=== PATIENT | female | born 1980 | race Asian ===

== ENCOUNTER 2017-12-28 04:21 | Inpatient (IN) | payer SELFPAY ==
[~2017-12-28] VITALS: Ht 152.4 cm; Wt 64.0 kg
[2017-12-28] MEDS: LACTATED RINGERS 1,000 ML IV SCH ×2 (05:00→06:15)
[2017-12-28] MEDS ORDERED: METHYLERGONOVINE 0.2 MG/ML AMP IM PRN ×2 (05:10→14:00)
[2017-12-28] MEDS ORDERED: CARBOPROST 250 MCG/ML AMP IM PRN (05:10)
[2017-12-28] MEDS ORDERED: ceFAZolin 1,000 MG VIAL ONE (05:59)
[2017-12-28] MEDS ORDERED: OXYTOCIN 10 UNITS/ML VIAL ONE (06:00)
[2017-12-28 06:08] LABS: BASOPHILS % (AUTO) 0.6 % (0.0-2.0); EOSINOPHILS # (AUTO) 0.1 K/uL (0-0.4); EOSINOPHILS % (AUTO) 1.3 % (0.0-4.0); HEMATOCRIT 31.5 % (36-48); LYMPHOCYTES # (AUTO) 1.6 K/uL (2.5-16.5); LYMPHOCYTES % (AUTO) 19.8 % (20.5-51.1); MEAN CORPUSCULAR HEMOGLOBIN 26 pg (27-31); MEAN CORPUSCULAR HGB CONC 32 g/dL (33-37); MEAN CORPUSCULAR VOLUME 81.7 fL (80-94); MONOCYTES # (AUTO) 0.8 K/uL (0.8-1.0); MONOCYTES % (AUTO) 9.7 % (1.7-9.3); NEUTROPHILS # (AUTO) 5.3 K/uL (1.8-7.7); NEUTROPHILS % (AUTO) 68.6 % (42.2-75.2); PLATELET COUNT (AUTO) 148 K/uL (140-450); RED BLOOD CELL COUNT(AUTO) 3.86 MIL/uL (4.20-5.40); RED CELL DISTRIBUTION WIDTH 13.9 % (11.6-13.7); WHITE BLOOD COUNT (AUTO) 7.8 K/uL (4.8-10.8)
[2017-12-28] MEDS ORDERED: TRIAMCINOLONE 40 MG/ML 5ML VIAL ONE (06:13)
[2017-12-28] MEDS ORDERED: fentaNYL 0.05 MG/ML VIAL ONE (06:21)
[2017-12-28] MEDS ORDERED: MORPHINE PRES FREE 10 MG/10 ML AMP IV ONE (06:21)
[2017-12-28] MEDS ORDERED: ePHEDrine 50 MG/ML VIAL ONE (06:21)
[2017-12-28 06:23] LABS: ANION GAP 12.4 (8-16); CARBON DIOXIDE 25.3 mmol/L (21-32); CREATININE 0.5 mg/dL (0.6-1.3); POTASSIUM 3.7 mmol/L (3.5-5.1)
[2017-12-28 06:29] LABS: ALBUMIN 2.7 g/dL (3.4-5.0)
[2017-12-28] MEDS ORDERED: ceFAZolin 1,000 MG VIAL IVP ONE (06:42)
[2017-12-28] MEDS ORDERED: NALBUPHINE 10 MG/ML AMP IVP PRN (06:50)
[2017-12-28] MEDS ORDERED: diphenhydrAMINE 50 MG/ML VIAL IVP PRN (06:50)
[2017-12-28] MEDS ORDERED: ONDANSETRON 4 MG/2 ML VIAL IVP PRN ×2 (06:50)
[2017-12-28] MEDS ORDERED: NALOXONE 0.4 MG/ML VIAL IVP PRN ×3 (06:50)
[2017-12-28] MEDS ORDERED: KETOROLAC 60 MG/2 ML VIAL IM PRN (06:50)
[2017-12-28] MEDS ORDERED: diphenhydrAMINE 50 MG/ML VIAL ONE (07:10)
[2017-12-28] MEDS ORDERED: ONDANSETRON 4 MG/2 ML VIAL ONE (07:11)
[2017-12-28] MEDS ORDERED: OXYTOCIN 20 UNITS/LR PREMIX 1,000 ML IV ONE ×2 (07:11→23:04)
[2017-12-28 07:13] LABS: APPEARANCE,URINE SL CLOUDY (CLEAR); BILIRUBIN,URINE NEGATIVE (NEGATIVE); BLOOD, URINE NEGATIVE (NEGATIVE); COLOR,URINE YELLOW (YELLOW); LEUKOCYTE ESTERASE ,URINE NEGATIVE (NEGATIVE); NITRITE, URINE NEGATIVE (NEGATIVE); UGLUCOSE NEGATIVE (NEGATIVE)
[2017-12-28 07:52] LABS: RBC,URINE 0-5 (RARE) /HPF (0-5); WBC,URINE 0-5 (RARE) /HPF (0-5)
--- NOTE | 2017-12-28 11:20 | NUR ---
PATIENT HAS BEEN SCREENED AND CATEGORIZED LOW NUTRITION RISK. PATIENT WILL BE SEEN WITHIN 7 DAYS OF ADMISSION. 01/03/[address]
[2017-12-28] MEDS ORDERED: BUPIVACAINE 0.125%/NS PREMIX 250 ML EPI SCH (11:40)
[2017-12-28] MEDS ORDERED: MEASLES, MUMPS, AND RUBELLA 1 VIAL SQVAC PRN (14:00)
[2017-12-28] MEDS ORDERED: TRIMETHOBENZAMIDE 200 MG/2 ML SYR IM PRN (14:00)
[2017-12-28] MEDS ORDERED: OXYTOCIN 10 UNITS in LACTATED RINGERS 1,000 ML IV SCH (14:00)
[2017-12-28] MEDS ORDERED: ACETAMINOPHEN 325 MG TAB PO PRN (14:00)
[2017-12-28] MEDS ORDERED: oxyCODONE/APAP 5/325 MG 1 TAB TAB PO PRN (14:00)
[2017-12-28] MEDS: OXYTOCIN 20 UNITS in LACTATED RINGERS 1,000 ML IV SCH ×2 (15:34→23:20)
[2017-12-28] MEDS ORDERED: SENNA 8.6 MG TAB PO SCH (21:00)
[2017-12-29 06:35] LABS: HEMATOCRIT 30.2 % (36-48); HEMOGLOBIN 9.6 g/dL (12.0-16.0)
[2017-12-29] MEDS ORDERED: KETOROLAC 15 MG/ML VIAL IVP SCH ×2 (08:04→08:15)
[2017-12-29] MEDS ORDERED: KETOROLAC 30 MG/ML VIAL ONE (08:36)
[2017-12-29] MEDS: SIMETHICONE 80 MG TAB.CHEW PO PRN (14:34)
[2017-12-29] MEDS: HYDROcodone/APAP 5/325 MG 1 TAB TAB PO PRN (14:35)
[2017-12-30] MEDS: SIMETHICONE 80 MG TAB.CHEW PO PRN ×3 (00:35→17:15)
[2017-12-30] MEDS: HYDROcodone/APAP 5/325 MG 1 TAB TAB PO PRN (02:07)
[2017-12-30] MEDS: IBUPROFEN 800 MG TAB PO PRN ×3 (08:30→18:04)
[2017-12-30] MEDS ORDERED: SODIUM PHOSPHATE 118 ML ENEM RC PRN (09:00)
[2017-12-31] MEDS ORDERED: IBUP-2213 PO (09:29)
[2017-12-31] MEDS: IBUPROFEN 800 MG TAB PO PRN (09:35)
== END 2017-12-31 11:45 | disposition home or self-care (01) | DRG 766 ==
LOC: MFCC 04:21
PROVIDERS: ADMIT Obstetrics & Gynecology; ATTEND Obstetrics & Gynecology
PROC: 10D00Z1 Extraction of Products of Conception, Low, Open Approach (ICD-10-PCS; principal; 2017-12-28 06:00)
PROC: 3E0234Z Introduction of Serum, Toxoid and Vaccine into Muscle, Percutaneous Approach (ICD-10-PCS; 2017-12-30)
PROC: 3E0134Z Introduction of Serum, Toxoid and Vaccine into Subcutaneous Tissue, Percutaneous Approach (ICD-10-PCS; 2017-12-30)
DX: O34.211 Maternal care for low transverse scar from previous cesarean delivery (principal); D64.9 Anemia, unspecified; O99.02 Anemia complicating childbirth; O32.8XX0 Maternal care for other malpresentation of fetus, not applicable or unspecified; Z37.0 Single live birth; Z3A.39 39 weeks gestation of pregnancy; Z23 Encounter for immunization; Z82.49 Family history of ischemic heart disease and other diseases of the circulatory system
CPT/HCPCS: 36415; 80053; 81001; 85018; 85025; 86592; 86762; 86886; 86900; 86901; 87340; 90707; 90715; J0690; J1200; J1885; J2270; J2405; J2590; J3010; J3301; J7060; J7120